=== PATIENT | female | born 1980 | race Caucasian/White ===

== ENCOUNTER 2021-04-30 04:33 | Emergency (ER) | payer OTHER ==
[~2021-04-30] VITALS: Ht 177.8 cm; Wt 175.1 kg
[2021-04-30 04:36] VITALS: BP 150/74
== END 2021-04-30 05:46 | disposition home or self-care (01) ==
LOC: ED 05:10
DX: K02.9 Dental caries, unspecified (principal)
CPT/HCPCS: 99283